=== PATIENT | female | born 1990 | race Caucasian/White ===

== ENCOUNTER 2016-10-01 19:36 | Emergency (ER) | payer OTHER ==
[2016-10-01 19:57] VITALS: BP 102/44; PULSE 56; TEMP 97.6; BMI 54.9
--- NOTE | 2016-10-01 20:20 | PDOC ---
History of Present Illness - General Chief Complaint: Back Pain Stated Complaint: PAIN Time Seen by Provider: 10/01/16 19:59 History Source: Patient Exam Limitations: No Limitations - History of Present Illness Initial Comments: CHIEF COMPLAINT: 25 y/o afebrile, morbidly obese female with PMH anemia, heart murmur c/o back pain for the past 2 weeks. HISTORY OF PRESENT ILLNESS: The patient denies trauma to her back and fall. She states her back feels tight and the pain worsens with some movement. She has been taking tylenol or Advil very intermittently with little relief. She states the pain sometimes radiates into the back of her legs. She denies f/c, n /v/d, neck pain, CP, SOB, abd pain, hematuria, dysuria, saddle anesthesia, bowel /bladder incontinence. Vital signs on arrival are within normal levels REVIEW OF SYSTEMS: GENERAL/CONSTITUTIONAL: No fever/chills. No weakness. No weight change. HEAD, EYES, EARS, NOSE AND THROAT: No change in vision. No ear pain or discharge. No sore throat. CARDIOVASCULAR: No chest pain or shortness of breath. RESPIRATORY: No cough, wheezing, or hemoptysis. GASTROINTESTINAL: No abd pain, nausea, vomiting, diarrhea. GENITOURINARY: No dysuria, frequency, or change in urination. MUSCULOSKELETAL: No joint or muscle swelling or pain. No neck pain. + low back pain. SKIN: No rash or easy bruising. NEUROLOGIC: No headache, vertigo, loss of consciousness, or loss of sensation. PHYSICAL EXAM: GENERAL: The patient is awake, alert, and fully oriented, in no acute distress. She is morbidly obese, ambulatory, in NAD or obvious discomfort. HEAD: Normal with no signs of trauma. ENT: Pupils equal, round and reactive to light, extraocular movements intact, sclera anicteric, conjunctiva clear. Neck supple. LUNGS: Clear to auscultation bilaterally. Normal excursion. No respiratory distress or use of accessory muscles. CV: RRR, S1/S2, no MRG. Cap refill < 2 sec. ABDOMEN: Soft, non-distended, non-tender even to deep palpation, no hepatomegaly or splenomegaly, no masses. BACK: No midline lumbar spine TTP or step offs. Pain reproduced with palpation of b/l lumbar paravertebral muscles from level of L1-L5. Pain reproduced with flexion of back and extension of upper arms b/l. EXTREMITIES: Normal range of motion, no edema. Equal straight leg raise b/l. NEUROLOGICAL: Normal speech, normal gait. CN II-XII grossly intact. No saddle anesthesia. PSYCH: Normal mood, normal affect. SKIN: Warm, dry, normal turgor, no rashes or lesions noted. Past History - Past Medical History Allergies/Adverse Reactions: Allergies Allergy/AdvReac Type Severity Reaction Status Date / Time No Known Allergies Allergy Verified 10/01/16 19:51 Home Medications: Ambulatory Orders NK [No Known Home Medication] 10/01/16 Asthma: No Cancer: No Cardiac Disorders: No Diabetes: No HTN: No Seizures: No Thyroid Disease: No - Immunization History Immunization Up to Date: Yes - Psycho/Social/Smoking Cessation Hx Anxiety: No Suicidal Ideation: No Smoking Status: No Smoking History: Never smoked Have you smoked in the past 12 months: No Number of Cigarettes Smoked Daily: 0 Information on smoking cessation initiated: No Hx Alcohol Use: No Drug/Substance Use Hx: No Substance Use Type: None Hx Substance Use Treatment: No *Physical Exam - Vital Signs Last Vital Signs Temp Pulse Resp BP Pulse Ox 97.6 F 56 L 16 102/44 100 10/01/16 19:53 10/01/16 19:53 10/01/16 19:53 10/01/16 19:53 10/01/16 19:53 Medical Decision Making - Medical Decision Making A/P: 25 y/o afebrile morbidly obese female with musculoskeletal low back pain. Plan is as follows: 1. hcg hcg - negative IM toradol ordered Suggested the patient take 800mg of Ibuprofen TID for a few days with food, apply heating pad, stretch multiple times per day, and have area massaged. If no improvement in symptoms in 1 week the patient was instructed to f/u with her PCP. She was instructed to return to the ER with any worsening or concerning symptoms. The patient verbalizes understanding of all instructions, has no further questions and is awaiting discharge. *DC/Admit/Observation/Transfer Diagnosis at time of Disposition: Musculoskeletal pain Low back pain Qualifiers: Chronicity: acute Back pain laterality: bilateral Sciatica presence: with sciatica Sciatica laterality: bilateral sciatica Qualified Code(s): M54.42 - Lumbago with sciatica, left side; M54.41 - Lumbago with sciatica, right side - Discharge Dispostion Disposition: HOME Condition at time of disposition: Good - Patient Instructions Printed Discharge Instructions: DI for Back Pain With Sciatica Additional Instructions: Discharge Instructions: -Take 800mg of Ibuprofen 3 times per day with food for the next few days -Apply heat and massage to the affected area multiple times per day -Stretch your back, legs and arms multiple times per day -If no improvement in 1 week follow up with Dr. Diallo -Return to the ER with any worsening or concerning symptoms
[2016-10-01 20:26] LABS: URINE APPEARANCE CLEAR; URINE BILIRUBIN NEGATIVE (NEGATIVE); URINE BLOOD NEGATIVE (NEGATIVE); URINE COLOR YELLOW; URINE GLUCOSE (UA) NEGATIVE (NEGATIVE); URINE KETONE TRACE (NEGATIVE); URINE LEUK ESTERASE NEGATIVE (NEGATIVE); URINE NITRITE NEGATIVE (NEGATIVE); URINE PROTEIN NEGATIVE (NEGATIVE); URINE UROBILINOGEN NEGATIVE E.U./dl (0.2-1.0)
[2016-10-01] MEDS ORDERED: KETOROLAC TROMETHAMINE 60 MG/2 ML VIAL IM ONE (20:28)
[2016-10-01] MEDS ORDERED: KETOROLAC TROMETHAMINE 60 MG/2 ML VIAL ONE (20:29)
== END 2016-10-01 20:45 | disposition home or self-care (01) ==
LOC: JERFT 19:36
PROC: 3E0233Z Introduction of Anti-inflammatory into Muscle, Percutaneous Approach (ICD-10-PCS; principal; 2016-10-01)
DX: M54.42 Lumbago with sciatica, left side (principal); M79.1 Myalgia; E66.01 Morbid (severe) obesity due to excess calories; Z68.43 Body mass index [BMI] 50.0-59.9, adult; D64.9 Anemia, unspecified; R01.1 Cardiac murmur, unspecified
CPT/HCPCS: 81003; 84703; 96360; 99281-25

== ENCOUNTER 2016-11-30 20:54 | Emergency (ER) | payer SELFPAY ==
[2016-11-30 21:01] VITALS: BP 135/105; PULSE 74; TEMP 98.4; BMI 54.3
--- NOTE | 2016-11-30 22:16 | PDOC ---
"History of Present Illness - General Chief Complaint: Pain Stated Complaint: BACK PAIN Time Seen by Provider: 11/30/16 21:34 History Source: Patient Exam Limitations: No Limitations - History of Present Illness Initial Comments: 11/30/16 22:26 25yo Morbid Obese Female patient w/ PmHx: Thoracic - Lumbar disc herniation presents to ED c/o acute-chronic back pain. Patient state symptoms have been ongoing, she has had MRIs in the past that show disc herniation to Thoracic and Lumbar region. Patient reports she is not under the care of an Orthopedist at this time. She states Dr. Yoel Nava, currently treats her with Naprosyn, but this is not working. She denies any other complaints, recent trauma, fall, or injury. Denies any bowel or bladder change. LNMP: Current MRI/Thoracic Spine w/o contrast results: At T8-T9 there is a central slightly left-sided superiorly herniated disc reaching the cord. At T5-T6 there is a small central disc herniation mildly deforming the sac. There is no cord lesion marrow replacement paraspinal masses. MRI/Lumbar Spine w/o contrast results: Mild productive changes of the facet joints at L4 L5 S1 mild effusion within the joints. There is no disc herniation foraminal narrowing and no spinal stenosis. These studies were resulted on 11-02-2016. Search Terms: Raisa Harris, 1990 Search Date: 11/30/2016 10:43:03 PM The Drug Utilization Report below displays all of the controlled substance prescriptions, if any, that your patient has filled in the last twelve months. The information displayed on this report is compiled from pharmacy submissions to the Department, and accurately reflects the information as submitted by the pharmacies. This report was requested by: Sinan Robb | Reference #: [id number] There are no results for the search terms that you entered. Severity: reports: severe Pain Location: reports: back Method of Injury: No: unknown, assault, direct blow, fall, motor vehicle crash, other Modifying Factors: improves with: pain medication (Naprosyn) Past History - Travel Traveled outside of the country in the last 30 days: No Close contact w/someone who was outside of country & ill: No - Past Medical History Allergies/Adverse Reactions: Allergies Allergy/AdvReac Type Severity Reaction Status Date / Time No Known Allergies Allergy Verified 11/30/16 21:01 Home Medications: Ambulatory Orders Cyclobenzaprine HCl [Flexeril 10 mg] 10 mg PO TID PRN #30 tablet 12/01/16 Oxycodone HCl/Acetaminophen [Percocet 5-325 mg Tablet] 1 tab PO Q6H PRN #16 tablet MDD 4 tabs 12/01/16 Asthma: No Cancer: No Cardiac Disorders: No Diabetes: No HTN: No Seizures: No Thyroid Disease: No Other medical history: herniated discs - Immunization History Immunization Up to Date: Yes - Psycho/Social/Smoking Cessation Hx Anxiety: No Suicidal Ideation: No Smoking Status: No Smoking History: Never smoked Have you smoked in the past 12 months: No Number of Cigarettes Smoked Daily: 0 Hx Alcohol Use: No Drug/Substance Use Hx: No Substance Use Type: None Hx Substance Use Treatment: No Trauma Specific PMHX - Complaint Specific PMHX Arthritis: No Back Injury: No Neck Injury: No Hx Sacro Iliac Joint Dysfunction: No Review of Systems - Review of Systems Able to Perform ROS?: Yes Is the patient limited Thai proficient: No Constitutional: No: Chills, Fever Respiratory: No: Cough, Shortness of Breath, Stridor, Wheezing Cardiac (ROS): No: Chest Pain ABD/GI: No: Constipated, Diarrhea, Nausea, Vomiting : No: Burning, Dysuria, Discharge, Flank Pain, Hematuria Musculoskeletal: Yes: Back Pain (Chronic). No: Muscle Pain, Muscle Weakness, Neck Pain All Other Systems: Reviewed and Negative *Physical Exam - Vital Signs Last Vital Signs Temp Pulse Resp BP Pulse Ox 98.4 F 74 20 135/105 100 11/30/16 20:55 11/30/16 20:55 11/30/16 20:55 11/30/16 20:55 11/30/16 20:55 - Physical Exam General Appearance: Yes: Nourished, Appropriately Dressed, Mild Distress. No: Apparent Distress, Moderate Distress, Severe Distress Neck: positive: Trachea midline, Supple. negative: Decreased range of motion, Stridor Respiratory/Chest: positive: Lungs Clear, Normal Breath Sounds. negative: Chest Tender, Respiratory Distress, Accessory Muscle Use, Labored Respiration, Rapid RR, Decreased Breath Sounds Cardiovascular: positive: Regular Rhythm, Regular Rate. negative: Edema, JVD, Murmur Gastrointestinal/Abdominal: positive: Normal Bowel Sounds, Soft. negative: Distended, Guarding, Rebound, Tenderness Musculoskeletal: positive: Normal Inspection, Decreased Range of Motion, Muscle Spasm, Vertebral Tenderness (Lumbar Sacral paraspinal tenderness. No step offs palpated midline.). negative: CVA Tenderness Extremity: positive: Normal Capillary Refill, Normal Inspection, Normal Range of Motion Integumentary: positive: Normal Color, Dry, Warm Neurologic: positive: stores assistant II-XII NML intact, Fully Oriented, Alert, Normal Mood/ Affect, Normal Response, Motor Strength 01/10 Progress Note - Progress Note Progress Note: 00112-01-2016 Patient reports medications that she was given did not help. Pain did not get worse, but no change in pain level. Robaxin 1000mg po ordered at this time. *DC/Admit/Observation/Transfer Diagnosis at time of Disposition: Back pain Qualifiers: Back pain location: low back pain Chronicity: chronic Back pain laterality: left Sciatica presence: without sciatica Qualified Code(s): M54.5 - Low back pain; G89.29 - Other chronic pain - Discharge Dispostion Disposition: HOME Condition at time of disposition: Stable Admit: No - Prescriptions Prescriptions: Cyclobenzaprine HCl [Flexeril 10 mg] 10 mg PO TID PRN #30 tablet PRN Reason: Back Pain Oxycodone HCl/Acetaminophen [Percocet 5-325 mg Tablet] 1 tab PO Q6H PRN #16 tablet MDD 4 tabs PRN Reason: Severe Pain - Referrals Referrals: Elijah Diallo MD [Primary Care Provider] - Darion Bowen MD [Staff Physician] - - Patient Instructions Printed Discharge Instructions: DI for Low Back Pain Additional Instructions: FOLLOW UP WITH DR. BOWEN (ORTHOPEDIC). CALL TO SCHEDULE APPOINTMENT. TAKE MEDICATIONS PRESCRIBED. DO NOT DRIVE, DRINK ALCOHOL, OR OPERATE HEAVY MACHINERY WHILE TAKING PERCOCET. APPLY WARM COMPRESS TO AFFECT AREA NEEDED. DISCUSS WEIGHT LOSS OPTIONS WITH PRIMARY CARE PROVIDER THIS MAY ALSO BE AFFECTING YOUR BACK. DRINK PLENTY WATER TO PREVENT CONSTIPATION WHILE TAKING PERCOCET. Print Language: INDONESIAN"
[2016-11-30 22:37] LABS: URINE APPEARANCE CLEAR; URINE BILIRUBIN NEGATIVE (NEGATIVE); URINE COLOR YELLOW; URINE GLUCOSE (UA) NEGATIVE (NEGATIVE); URINE KETONE TRACE (NEGATIVE); URINE LEUK ESTERASE NEGATIVE (NEGATIVE); URINE NITRITE NEGATIVE (NEGATIVE); URINE PROTEIN NEGATIVE (NEGATIVE); URINE UROBILINOGEN NEGATIVE E.U./dl (0.2-1.0)
[2016-11-30 22:38] LABS: URINE BLOOD 3+ (NEGATIVE)
[2016-11-30 22:39] LABS: URINE MUCUS RARE; URINE RBC 8 /hpf (0-3); URINE WBC <1 /hpf (3-5)
[2016-11-30] MEDS ORDERED: OXYCODONE/APAP 5/325MG COMBO TABLET PO ONE (22:45)
[2016-11-30] MEDS ORDERED: KETOROLAC TROMETHAMINE 60 MG/2 ML VIAL IM ONE (22:45)
[2016-11-30] MEDS ORDERED: predniSONE 20 MG TABLET (UD) PO ONE (22:45)
[2016-11-30] MEDS ORDERED: KETOROLAC TROMETHAMINE 60 MG/2 ML VIAL ONE (23:20)
[2016-11-30] MEDS ORDERED: predniSONE 20 MG TABLET (UD) ONE (23:20)
[2016-11-30] MEDS ORDERED: OXYCODONE/APAP 5/325MG COMBO TABLET ONE (23:20)
[2016-12-01] MEDS ORDERED: METHOCARBAMOL 500 MG TABLET PO ONE (00:11)
[2016-12-01] MEDS ORDERED: METHOCARBAMOL 500 MG TABLET ONE (00:17)
== END 2016-12-01 01:38 | disposition home or self-care (01) ==
LOC: JER 20:54
PROC: 3E0233Z Introduction of Anti-inflammatory into Muscle, Percutaneous Approach (ICD-10-PCS; principal; 2016-11-30)
DX: M54.5 Low back pain (principal); G89.29 Other chronic pain; M51.24 Other intervertebral disc displacement, thoracic region; E66.01 Morbid (severe) obesity due to excess calories; Z68.43 Body mass index [BMI] 50.0-59.9, adult
CPT/HCPCS: 81003; 81015; 84703; 99282-25

== ENCOUNTER 2017-09-11 11:04 | Inpatient (IN) | payer OTHER ==
[2017-09-05 10:33] VITALS: BMI 53.5
[2017-09-11] MEDS ORDERED: fentaNYL CITRATE 250 MCG/5 ML VIAL ONE (12:00)
[2017-09-11] MEDS ORDERED: PROPOFOL 20 ML ONE ×4 (12:00→14:44)
[2017-09-11] MEDS ORDERED: SUCCINYLCHOLINE CHLORIDE 200 MG/10 ML VIAL ONE (12:01)
[2017-09-11] MEDS ORDERED: ROCURONIUM BROMIDE 50 MG/5 ML VIAL ONE (12:01)
[2017-09-11] MEDS ORDERED: LIDOCAINE HCL/PF 2% SDV 5ML VIAL ONE (12:01)
[2017-09-11] MEDS ORDERED: MIDAZOLAM HCL 2 MG/2 ML SINGLE DOSE VIAL ONE (12:01)
[2017-09-11] MEDS ORDERED: BUPIVACAINE HCL/PF 0.5% (5MG/ML) 10 ML VIAL ONE (12:13)
[2017-09-11 12:14] LABS: URINE APPEARANCE CLEAR; URINE BILIRUBIN NEGATIVE (NEGATIVE); URINE BLOOD NEGATIVE (NEGATIVE); URINE COLOR LTYELLOW; URINE GLUCOSE (UA) NEGATIVE (NEGATIVE); URINE KETONE NEGATIVE (NEGATIVE); URINE LEUK ESTERASE NEGATIVE (NEGATIVE); URINE NITRITE NEGATIVE (NEGATIVE); URINE PROTEIN NEGATIVE (NEGATIVE); URINE UROBILINOGEN NEGATIVE mg/dL (0.2-1.0)
[2017-09-11] MEDS ORDERED: ceFAZolin SODIUM 1 GM VIAL ONE (13:36)
[2017-09-11] MEDS ORDERED: DEXAMETHASONE SOD PHOSPHATE 4 MG/1 ML VIAL ONE (13:36)
[2017-09-11] MEDS ORDERED: ceFAZolin SODIUM 1 GM VIAL IVPB ONE (13:45)
[2017-09-11] MEDS ORDERED: PROMETHAZINE HCL 25 MG/1 ML VIAL IVPUSH PRN (14:27)
[2017-09-11] MEDS ORDERED: ACETAMINOPHEN 1000 MG/100 ML VIAL (NON FORMULARY) IVPB PRN (14:27)
[2017-09-11] MEDS ORDERED: ONDANSETRON 4 MG/2 ML VIAL IVPUSH PRN (14:27)
[2017-09-11] MEDS ORDERED: GLYCOPYRROLATE 0.2 MG/1 ML VIAL ONE (14:39)
[2017-09-11] MEDS ORDERED: NEOSTIGMINE METHYLSULFATE 0.5 MG/ML - 10 ML MDV ONE (14:39)
[2017-09-11] MEDS ORDERED: PROMETHAZINE HCL 25 MG/1 ML VIAL IVPB PRN (14:39)
--- NOTE | 2017-09-11 14:52 | OP ---
Operative Note - Note: Operative Date: 09/11/17 Pre-Operative Diagnosis: Morbid obesity Operation: Upper endoscopy/EGD Findings: No leak/obstruction Post-Operative Diagnosis: Same as Pre-op Anesthesia: General Specimens Removed: None Estimated Blood Loss (mls): 0 Operative Report Dictated: Yes
[2017-09-11] MEDS ORDERED: ONDANSETRON 4 MG/2 ML VIAL ONE (15:08)
[2017-09-11] MEDS: HYDROmorphone HCL CARPU-JECT 1 MG/1 ML DISP.SYRIN IVPUSH PRN ×4 (15:08→16:15)
[2017-09-11] MEDS ORDERED: HYDROmorphone HCL CARPU-JECT 2 MG/1 ML DISP.SYRIN ONE (15:14)
[2017-09-11] MEDS ORDERED: ACETAMINOPHEN INJECTION 100 ML IVPB ONE (15:14)
[2017-09-11] MEDS ORDERED: PROMETHAZINE HCL 25 MG/1 ML VIAL ONE (15:19)
[2017-09-11] MEDS ORDERED: ENOXAPARIN NA (PORCINE) 40 MG/0.4 ML DISP.SYRIN SQ ONE ×2 (15:26→16:40)
--- NOTE | 2017-09-11 15:34 | SPEC ---
DATE OF OPERATION: 09/11/2017 SURGEON: Adeel Chery MD PREOPERATIVE DIAGNOSIS: Morbid obesity, status post laparoscopic vertical sleeve gastrectomy. POSTOPERATIVE DIAGNOSIS: No leaks, no obstruction. PROCEDURES: Upper endoscopy/esophagogastroduodenoscopy. SPECIMEN: None. ESTIMATED BLOOD LOSS: Zero. ANESTHESIA: GET: REASON FOR PROCEDURE: This is a 26-year-old female who is undergoing a laparoscopic vertical gastrectomy by Dr. Madhav Russell. To evaluate for leak or obstruction a consult was requested for an upper endoscopy/esophagogastroduodenoscopy. DESCRIPTION OF PROCEDURE: After the sleeve gastrectomy was performed the endoscope was inserted into the patients mouth. The esophagus, GE junction, gastric pouch, and staple line were fully inspected. Hemostasis was noted. No leak or obstruction was identified. The stomach was suctioned and the endoscope removed from the patient. The remainder of the procedure was continued. Please refer to Dr. Madhav Whittaker dictation for further details of the operative report. ADEEL CHERY M.D. [id number]
[2017-09-11] MEDS: LACTATED RINGERS SOLUTION 1,000 ML IV SCH (15:37)
[2017-09-11] MEDS: SODIUM CHLORIDE 1,000 ML IV SCH (15:37)
--- NOTE | 2017-09-11 15:43 | OP ---
Operative Note - Note: Operative Date: 09/11/17 Pre-Operative Diagnosis: Morbid Obesity Operation: Laparoscopic Vertical Sleeve Gastrectomy. Wedge Biopsy of Liver. Diagnostic Laparoscopy Findings: Greater curve sleeve gastrectomy performed with #[address] Wedge Biopsy performed on enlarged left lobe of liver Implants: no Post-Operative Diagnosis: Same as Pre-op (Hepatomegaly) Surgeon: Madhav Russell [employer] Operator: Jesus Alberto Chery Anesthesia: General Specimens Removed: Greater curve of stomach. Left lobe of liver Estimated Blood Loss (mls): 30 Operative Report Dictated: Yes
[2017-09-11 15:47] LABS: HEMATOCRIT 40.3 % (32.4-45.2); HEMOGLOBIN 12.8 GM/dL (10.7-15.3); MCH 29.2 pg (25.7-33.7); MCHC 31.8 g/dl (32.0-36.0); MEAN CELL VOLUME 91.7 fl (80-96); MEAN PLT VOLUME 9.1 fl (7.5-11.1); PLATELET COUNT 267 K/MM3 (134-434); RDW 14.4 % (11.6-15.6); WHITE BLOOD COUNT 14.8 K/mm3 (4.0-10.0)
[2017-09-11 16:23] LABS: ALBUMIN 3.3 g/dl (3.4-5.0); ALK PHOS 78 U/L (45-117); ANION GAP 9 (8-16); BILIRUBIN,TOTAL 0.2 mg/dL (0.2-1.0); BLOOD UREA NITROGEN 13 mg/dL (7-18); CALCIUM 8.8 mg/dL (8.5-10.1); CHLORIDE 107 mmol/L (98-107); CO2 24 mmol/L (21-32); CREATININE 0.7 mg/dL (0.55-1.02); GLUCOSE,RANDOM 112 mg/dL (74-106); POTASSIUM 4.1 mmol/L (3.5-5.1); SGOT/AST 18 U/L (15-37); SGPT/ALT 21 U/L (12-78); SODIUM 140 mmol/L (136-145); TOT PROT 7.8 g/dl (6.4-8.2)
--- NOTE | 2017-09-11 16:36 | OP ---
DATE OF OPERATION: 09/11/2017 PREOPERATIVE DIAGNOSIS: Morbid obesity. POSTOPERATIVE DIAGNOSIS: 1. Morbid obesity. 2. Hepatomegaly. PROCEDURE PERFORMED: 1. Laparoscopic vertical sleeve gastrectomy. 2. Wedge biopsy, left lobe of liver. 3. Diagnostic laparoscopy. OPERATING SURGEON: Madhav Russell M.D. FORESTRY SUPERVISOR SURGEON: Jesus Alberto Chery M.D. ANESTHESIA: General. OPERATIVE PROCEDURE: The patient was brought into the operating room, placed on the OR table in the supine position. All precautions were taken initially including padding for the back and the feet, and Venodyne boots were placed on both lower extremities. At that point, the abdomen was prepped and draped in the usual manner. A Veress needle was placed in the left upper quadrant, and a pneumoperitoneum was established. A number 12 bladeless trocar was placed in the left upper quadrant and through the trocar, laparoscopic camera was placed. Under direct vision, a number 15 bladeless trocar was placed in the midline in a supraumbilical position and a number 5 bladeless trocar in the right upper quadrant and number 5 bladeless trocar below the left costal margin. A Ronak liver retractor was then placed in the epigastrium to retract the left lobe of the liver. The left lobe was noted to be extremely enlarged and it was decided that a wedge biopsy would be performed. With the electrocautery turned high on the edge of the left lobe, first the capsule and then the parenchyma of the liver was dissected, and a small portion was removed from the liver and sent off the field as specimen to pathology. Some very minor bleeding from parenchyma was easily controlled with electrocautery. At this juncture, anesthesia placed the patient in a 20-degree reverse Trendelenburg position. The pylorus was noted on the stomach distally, and 6 cm were measured proximally from there. Here, the operating surgeon lifted the greater curve of the stomach toward the anterior abdominal wall, the assistant grocery surgeon retracted the gastrocolic ligament inferiorly. The Ligasure device used to dissect the short gastric vessels and the gastrocolic ligament off the greater curve of the stomach. This continued in a superior and vertical direction until the final short gastric vessel between the superior pole of the spleen and the proximal fundus was divided. At this juncture, anesthesia advanced to number 40 bougie, which had been placed at the beginning of the procedure. With the bougie held along the lesser curvature, a series of sacha were performed, with the first two being black sacha 6 cm in length along the bougie. This was followed by a series of purple sacha also along the bougie, until the final staple was fired in left upper quadrant, and the greater curve was now completely detached from the lesser curve. It should be noted that prior to firing sacha, both the anterior and posterior ceballos were checked and they were equal, and in the area of the esophagogastric junction approximately 1 to 1.5 cm serosa remained on the anterior and posterior surfaces. At this juncture, anesthesia removed the bougie, and the assistant grocery surgeon, Dr. Chery, scrubbed out performed an upper endoscopy. The details of that procedure will be described in his note, but it showed that there was no bleeding inside the stomach, and the staple line was intact, and no signs of any obstruction or leakage from the staple line. At this the dissected greater curve was removed through the number 15 trocar site and sent off the field to pathology as specimen. Under direct vision, the number 15 and 12 trocar sites were closed with Endoclose device to prevent internal hernia and prevent bleeding. Under direct vision, all trocars were removed and pneumoperitoneum was released. All trocar sites injected with 0.25% Marcaine, and then the midline trocar site was closed with 3-0 Vicryl in the subcutaneous tissue, and then all trocars were closed with 4-0 Biosyn in a subcuticular fashion. Dressings were applied, patient awoken from anesthesia and transferred out of the operation room to the recovery room in stable condition. Anesthesia in this case was general, surgeon Dr. Russell, assistant grocery Dr. Jesus Alberto Chery, expected blood loss was 30 mL. Patient transferred to recovery room in stable condition. Rafael [id number]
[2017-09-11] MEDS ORDERED: METOCLOPRAMIDE HCL INJECTION 10 MG/2 ML VIAL IVPUSH PRN (17:25)
[2017-09-11] MEDS: HYDROmorphone HCL CARPU-JECT 2 MG/1 ML DISP.SYRIN IVPB PRN ×2 (18:31→23:01)
[2017-09-11] MEDS: FAMOTIDINE 20 MG/50 ML IVPB 20 MG/50 ML MG IVPB SCH (21:56)
[2017-09-12] MEDS: SODIUM CHLORIDE 1,000 ML IV SCH (01:04)
[2017-09-12] MEDS: HYDROmorphone HCL CARPU-JECT 2 MG/1 ML DISP.SYRIN IVPB PRN ×2 (06:04→13:25)
--- NOTE | 2017-09-12 08:12 | PN ---
Progress Note (short form) - Note Progress Note: Anesthesia POD#1 S/P Laproscopic Gastric Sleeve Under GA VSS,using incentive spirometery,NPO,pain is bearable, N/V yesterday,doing better today. A/P Doing well,no other complications seen. Mya Resendez MD.
[2017-09-12] MEDS: FAMOTIDINE 20 MG/50 ML IVPB 20 MG/50 ML MG IVPB SCH ×2 (10:13→21:14)
[2017-09-12] MEDS ORDERED: ACETAMINOPHEN 325 MG TABLET (FP) PO PRN (14:48)
--- NOTE | 2017-09-12 14:53 | PN ---
Progress Note (short form) - Note Progress Note: POD#1 Afebrile; VSS Pt doing well Ambulating well No N/V UGI- no leak, no obstruction H/H- P- Begin PO clear liquids-m 2 oz po TID Encourage incentive spirometer Encourage OOB ambulate Cont DVT prophylaxis
[2017-09-12] MEDS ORDERED: SODIUM CHLORIDE 1,000 ML IV SCH (15:00)
[2017-09-12] MEDS: LACTATED RINGERS SOLUTION 1,000 ML IV SCH (15:08)
[2017-09-12] MEDS: oxyCODONE HCL 5 MG TABLET PO PRN (21:13)
[2017-09-13] MEDS: oxyCODONE HCL 5 MG TABLET PO PRN (07:44)
[2017-09-13 08:26] LABS: HEMATOCRIT 33.4 % (32.4-45.2); HEMOGLOBIN 10.7 GM/dL (10.7-15.3); MCH 29.1 pg (25.7-33.7); MEAN PLT VOLUME 8.7 fl (7.5-11.1); PLATELET COUNT 200 K/MM3 (134-434); RBC 3.67 M/mm3 (3.60-5.2); RDW 13.9 % (11.6-15.6)
[2017-09-13 08:45] LABS: ALBUMIN 2.9 g/dl (3.4-5.0); ALK PHOS 60 U/L (45-117); ANION GAP 9 (8-16); BILIRUBIN,TOTAL 0.4 mg/dL (0.2-1.0); BLOOD UREA NITROGEN 12 mg/dL (7-18); CALCIUM 8.7 mg/dL (8.5-10.1); CHLORIDE 105 mmol/L (98-107); CO2 26 mmol/L (21-32); CREATININE 0.7 mg/dL (0.55-1.02); GLUCOSE,RANDOM 82 mg/dL (74-106); SGOT/AST 17 U/L (15-37); SGPT/ALT 18 U/L (12-78); SODIUM 140 mmol/L (136-145); TOT PROT 6.6 g/dl (6.4-8.2)
[2017-09-13 11:30] VITALS: BP 122/73; PULSE 62; TEMP 97.8
--- NOTE | 2017-09-15 16:14 | PATH ---
Surgical Pathology Report Patient Name: DESIREE PRESLEY [facility]. Rec. #: [id number] /Age/Gender: 1990 (Age: 26) / F Account: [id number] Location: 4 W TELEMETRY U Taken: 09/11/2017 Received: 09/12/2017 Reported: 09/15/2017 Physicians: Madhav Russell M.D. Specimen(s) Received A: GREATER CURVATURE STOMACH B: LIVER BIOPSY Clinical History Morbid obesity Final Diagnosis A. STOMACH, GREATER CURVATURE, LAPAROSCOPIC VERTICAL SLEEVE GASTRECTOMY: PORTION OF STOMACH WITH MILD CHRONIC GASTRITIS. IMMUNOHISTOCHEMICAL STAIN FOR H. PYLORI IS NEGATIVE. B. LIVER, WEDGE BIOPSY: LIVER PARENCHYMA WITH MINIMAL STEATOSIS (<1%). NO INCREASE IN IRON AND FIBROSIS ON PERFORMED SPECIAL STAINS (IRON AND TRICHROME). Comment: Subcapsular biopsy with focal thermal artifact. Electronically Signed Mima Treviño M.D. Gross Description A. Received in formalin, labeled "greater curvature of stomach," is a 88 gram, 14.0 x 3.8 x 2.8 cm. portion of stomach with a stapled margin of resection. The serosa is downs-edwards with minimal attached fat. The mucosa is downs-pink with normal folds. No mucosal masses are identified. Sanitary Chemist sections are submitted in one cassette. B. Received in formalin labeled "liver biopsy," is a 2.0 x 1.3 x 0.6 cm downs, irregular portion of liver. The specimen is bisected and entirely submitted in one cassette. 09/12/201709/12/2017
== END 2017-09-13 11:39 | disposition home or self-care (01) | DRG 403 ==
LOC: JSAMEDAYSX 11:04 → EDSTATUS 12:00 → J4W 17:15
PROVIDERS: ADMIT Surgery; ATTEND Surgery
PROC: 0FB24ZX Excision of Left Lobe Liver, Percutaneous Endoscopic Approach, Diagnostic (ICD-10-PCS; 2017-09-11)
PROC: 0DJ08ZZ Inspection of Upper Intestinal Tract, Via Natural or Artificial Opening Endoscopic (ICD-10-PCS; 2017-09-11)
PROC: 0DB64Z3 Excision of Stomach, Percutaneous Endoscopic Approach, Vertical (ICD-10-PCS; principal; 2017-09-11 12:30)
DX: E66.01 Morbid (severe) obesity due to excess calories (principal); Z68.43 Body mass index [BMI] 50.0-59.9, adult; R16.0 Hepatomegaly, not elsewhere classified; K29.50 Unspecified chronic gastritis without bleeding; K76.0 Fatty (change of) liver, not elsewhere classified
CPT/HCPCS: 36415; 74241-TC; 80048; 80053; 81003; 84703; 85027; 86850; 86900; 86901; 87081; 88307-TC; 94010; 94760